=== PATIENT | male | born 1965 | race Caucasian/White ===

== ENCOUNTER → 2025-05-27 | Outpatient (CLI) | payer OTHER, SELFPAY ==
--- OUTSIDE RECORDS SUMMARY | 2025-05-27 06:47 | XMS RPT_ITS | CCD ---
Author Organization [facility] Care Team Providers Care Nurse Technician Name Role Phone PHYSICIAN, NOT RECORDED Unavailable Unavaila CLAUDE Morales Unavailable Unavailable CYNTHIA MIDDLETON Unavailable Unavailable CYNTHIA MIDDLETON Unavailable Unavailable TONEBRANDON Ace M Attending Unavailable TONE, BRANDON M Primary Care Unavailable TONE BRANDON M Admitting Unavailable Unavailable Primary Care Provider UnavailGABRIELLA Hernandez Attending Unavailable TONE, BRANDON Referring Unavailable Rosalva, Jerad Attending Unavailable Care Physician, No Primary Primary Care Unava ilable Rosalva, Jerad Referring Unavailable Rosalva, Jerad Attending Unavailable Care Physician, No Primary Primary Care Unava ilable Rosalva, Jerad Referring Unavailable Rosalva, [place] Attending Unavailable Problems Problem Classification Problem Date Documented Da te Episodic/Chronic Cardiac dysrhythmias (1 source) Unspecified atrial fibrillation; Translations: [Unspecified atrial fibrillation] Onset: 05-22-2025 Chronic Heart valve disorders (1 source) Nonrheumatic mitral (valve) insufficiency; Translations: [Nonrheumatic mitral (valve) insufficiency] Onset: 05-07-2025 Chronic Other lower respiratory disease (1 source) Dyspnea, unspecified; Translations: [Dyspnea, unspecified] Onset: 05-07-2025 Episodic Arin-; endo-; and myocarditis; cardiomyopathy (except that caused by tuberculosis or sexually transmitted disease) (8 sources) Hypertrophic cardiomyopathy; Translations: [Other hypertrophic cardiomyopathy] Onset: 10-28-2024 10-28-2024 Chronic Results Test Name Value Interpretation Reference Range Facility Cardiology Visit Reporton Cardiology Visit Report [facility] [address] [place], [place] [address] OFFICE VISIT Date of Service: 05/07/25 MR#: [id number] Acct: [id number] Name: HARRIET HERNANDEZ Rep #: [id number] : 1965 Provider: Dr. Jerad Blackwell MD Age/Sex: 59/M Location: [facility] [place] [facility] Status: Signed HPI HPI History of Present Illness Details: The patient is a 59-year-old male with a history of HCM, presenting for evaluation of dyspnea on exertion. The patient reports experiencing dyspnea on exertion over the past few years, which he attributes to a prior COVID-19 infection. He notes that the dyspnea is not constant and improves with rest. He denies any episodes of syncope. He underwent an echocardiogram last winter, which revealed a thickened heart muscle. It demonstrated an ejection fraction which was normal and an interventricular septal dimension of 1.6 cm. There was also systolic anterior motion of the mitral valve. LVOT with provocation was 188 mmHg and the maximum gradient at rest was 26 mmHg. 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 He does have a family history of hypertrophic cardiomyopathy but there is no family history of sudden cardiac . He had previously seen a rehabilitation construction specialist at [facility] and they discussed metoprolol, Camzyos, and septal myectomy. At that time he was not interested in any of that and so he presented to us for an evaluation. He has previously been taking natural supplements but he also discontinued these because he did not really trust them. 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 He denies any significant limitations in his daily activities. He has a family history of HCM, with his brother having undergone surgery at the [facility] in November. His father is , and his mother had dementia. He mentions that his daughter has a heart murmur and is otherwise healthy. His physical exam demonstrates clear lung briceno regular rate and rhythm a resting systolic heart murmur worse with Valsalva maneuver and his electrocardiogram demonstrates sinus bradycardia with a rate of 56 bpm. Moderate voltage criteria for LVH is noted. He denies any history of smoking or alcohol use. Intake Vital Signs 05/07/25 14:14 Height 5 ft 6 in Weight: 173 lb BMI 27.9 BP 130/86 H Blood Pressure Location Lt brachial Position Sitting Respiration 16 Pulse 59 L Pulse Source Monitor Intake Visit Reasons: EST CARE (SELF) Hand Ironer Required: No Accompanied by: Significant Other Is patient in pain?: No Allergies No Known Allergies Allergy (Unverified 05/07/25 14:10) Medications ???Medication ???Instructions ???Recorded ???Confirmed ???Type NK 04/17/25 04/17/25 History PFSH Medical History Dyspnea Mitral regurgitation Hypertrophic cardiomyopathy Surgical History Hx of tonsillectomy Family History Father S/P CABG x 5 Brother Hx of CABG H/O mitral valve repair Social History Smoking Status: Never smoker alcohol intake: never substance use type: does not use ROS Const Const: Positive for fatigue; Negative for weakness, daytime sleepiness or difficulty sleeping ENT ENT: Negative for dizziness or Nosebleed/epistaxis Cardio Chest Pain: No Palpitations: Yes ("very little") Edema: None Resp Respiratory: Positive for SOB with activity and SOB at rest; Negative for SOB orthopnea SOB lying down or Cough GI GI: Negative nausea, vomiting or heartburn Neuro Neuro: Negative for dizziness, lightheadedness, near syncope or weakness Endo Endo: Positive for fatigue Cardiology Exam Const Appearance: cooperative, healthy appearing, no acute distress, well developed and well groomed Nutritional Appearance: average body habitus and well nourished Orientation: alert, awake and oriented x3 Head Head: normal to inspection, normocephalic and atraumatic Ears: hearing grossly normal bilaterally and external ears normal Nose: external nose normal, nares normal, nasal mucous membranes and turbinates normal, septum normal and no nasal discharge Face and Sinus: face symmetric Mouth: oral mucosae normal, tongue normal, oropharynx normal and moist mucous membranes Teeth and gingiva: dentition normal Throat: posterior oropharynx normal, tonsils normal and uvula midline Eyes General: appearance normal, both eyes and all related structures Eyelids: eyelids normal Conjunctivae: conjunctivae normal Pupils: PERRL, normal by confrontation and accommodation normal EOM: E (more content not included)... Normal [facility] CV ECHO COMPLETE CV ECHO COMPLETE [place] [address] Patient: HARRIET HERNANDEZ Phone#: : 1965 Age: 59 Gender: M Pt. Type: Out Account: [id number] Location: Ordering: BRANDON TONE Exam Date: 09/12/20247:54 Family Phys: Charge Code: [id number] Physician: Floyd Order #: [id number] Dose#: PROCEDURE: ECHOCARDIOGRAM WITH DOPPLER AND COLOR FLOW HISTORY: Patient 59-year-old male with shortness of breath INDICATIONS: SOB COMPARISON: None. TECHNIQUE: A 2-D ultrasound, color spectral Doppler and M-mode evaluation of the heart and great vessels. PATIENT MEASUREMENTS: Height (in.): 66 BSA: 1.84 Weight (lbs.): 166 BP: 106/79 Peanut Separator: UMM M MODE 2D MEASUREMENTS AND CALCULATIONS: LVIDd: 4.25 cm LVIDs: 1.71 cm IVSd: 1.6 cm LVPWd: 1.0 cm LVOT diam: 2.0 cm FS: 59.74 % Ao Root diam: 3.13 cm LA diam: 5.2 cm LA Volume Index: 54 mL/m2 LA A4 Area: 25.42 cm2 RA A4 Area: 17 cm2 RVDd: 4.15 cm TAPSE: 27 mm DOPPLER MEASUREMENTS AND CALCULATIONS MITRAL MV E MAX paco: 0.94 m/s MV A MAX paco: 0.83 m/s MV E-A ratio: 1.13 MV V2 max: 1.13 m/s MV max P.12 mm[Hg] MV V2 mean: 0.71 m/s Continued Report - Page 2 of 3 Patient: HARRIET HERNANDEZ Phone#: : 1965 Age: 59 Gender: M Pt. Type: Out Account: [id number] Location: Ordering: BRANDON TONE Exam Date: 09/12/2024/7:54 Family Phys: Charge Code: [id number] Physician: Floyd Order #: [id number] Dose#: MV mean P.37 mm[Hg] MV V2 VTI: 37.19 cm Lat Peak E' Paco 6 cm/sec Septal Peak E' PACO 5 cm/sec E/E' lateral 17 E/E' medial 19.1 AORTIC Ao V2 max: 2.43 m/s Ao max P.62 mm[Hg] Ao V2 mean: 1.66 m/s Ao mean P.56 mm[Hg] Ao V2 VTI: 56.07 cm LV V1 Max 2.6 m/sec LV V1 Max PG 26 mm Hg LV V1 Mean PG 19 mm Hg LV V1 mean 2.12 m/sec LV V1 VTI 63 cm PULMONIC PA V2 Max 1.09 m/s PA Max PG 4.72 mm[Hg] TRICUSPID TR Max Paco 2.62 m/s TR max PG 27.56 mm[Hg] RVSP 31 mm Hg 2D/M-MODE AND COLOR FLOW LEFT VENTRICLE: There is asymmetric basal to mid septal hypertrophy seen. With IV SD measuring 1.6 cm suggestive hypertrophic cardiomyopathy.. There is systolic anterior motion of mitral valve leaflet resulting in maximum LVOT gradient of 188 mm Hg with provocation. Maximum gradient at rest is 26 mm Hg. There is grade 2 diastolic dysfunction seen. WALL MOTION: 1 - Basal anterior: Normal. 7 - Mid anterior: Normal. 13 - Apical anterior: Normal. 2 - Basal anteroseptal: Normal. 8 - Mid anteroseptal: Normal. 14 - Apical septal: Normal. 3 - Basal inferoseptal: Normal. 9 - Mid inferoseptal: Normal. 15 - Apical inferior: Normal. 4 - Basal inferior: Normal. 10-Mid inferior: Normal. 16 - Apical lateral: Normal. 5 - Basal inferolateral: Normal. 11-Mid inferolateral: Normal. 6 - Basal anterolateral: Normal. 12-Mid anterolateral: Normal. RIGHT VENTRICLE: Right ventricle is normal in size and systolic function LEFT ATRIUM: Left atrium is severely enlarged RIGHT ATRIUM: Right atrium is normal in size Continued Report - Page 3 of 3 Patient: HARRIET HERNANDEZ Phone#: : 1965 Age: 59 Gender: M Pt. Type: Out Account: [id number] Location: Ordering: [employer] Exam Date: 09/12/2024/7:54 Family Phys: Charge Code: [id number] Physician: Floyd Order #: [id number] Dose#: ATRIAL SEPTUM: There is no large interatrial shunt seen. PFO was not assessed MITRAL VALVE: Mitral valve leaflets appear mildly thickened. There is moderate to severe posteriorly directed mitral valve regurgitation. There is no stenosis AORTIC ROOT: Aortic root is normal in size. Proximal ascending aorta is dilated 3.8 cm. AORTIC ARCH: Inadequately visualized DESC THORACIC AORTA: Descending aorta is normal in size. Doppler shows normal flow IVC/SVC: IVC is normal in size with more than 50% collapse of inspiration. Estimated atrial pressure is 3 mm Hg PULMONARY VEINS: Normal pulmonic vein flow. PERICARDIUM: There is no pericardial effusion seen CONCLUSION: 1. There is asymmetric basal to mid septal hypertrophy seen with IV SD measuring 1.6 cm suggestive of hypertrophic cardiomyopathy. There is systolic anterior motion of the mitral leaflets resulting in LVOT gradient. Maximum gradient is 188 mm Hg with provocation. 2. Left atrium is severely enlarged. 3. Mitral valve leaflets appear mildly thickened. There is moderate to severe posteriorly directed mitral valve regurgitation seen. 4. Right ventricle is normal in size and systolic function 5. Estimated right ventricular systolic pressure is 31 mm Hg. 6. Proximal ascending aorta is mildly dilated 3.8 cm. Dictated by: BRENT ROJAS MD on 09/12/2024 at 11:16 Approved by: BRENT ROJAS MD on 09/12/2024 at 12:04 Normal [facility] .GFRon 12-22-2021 GFR >60 Normal [facility] ([place]) Comment on above: Result Comment: GFR Population mean for , Non- Americans Ages 20-29 = 116 mL/min/1.73 sq.m. Ages 30-39 = 107 mL/min/1.73 sq.m. Ages 40-49 = 99 mL/min/1.73 sq.m. Ages 50-59 = 93 mL/min/1.73 sq.m. Ages 60-69 = 85 mL/min/1.73 sq.m. Ages 70+ = 75 mL/min/1.73 sq.m. Chronic Kidney Disease: Less than 60 mL/min/1.73 square meters End Stage Renal Disease: Less than 15 mL/min/1.73 square meters Performed By: #### L IPID, GFR, BMP, HCV1 #### [address] [address] GFR Non- >60 Normal [facility] ([place]) Comment on above: Result Comment: GFR Population mean for , Non- Americans Ages 20-29 = 116 mL/min/1.73 sq.m. Ages 30-39 = 107 mL/min/1.73 sq.m. Ages 40-49 = 99 mL/min/1.73 sq.m. Ages 50-59 = 93 mL/min/1.73 sq.m. Ages 60-69 = 85 mL/min/1.73 sq.m. Ages 70+ = 75 mL/min/1.73 sq.m. Chronic Kidney Disease: Less than 60 mL/min/1.73 square meters End Stage Renal Disease: Less than 15 mL/min/1.73 square meters Performed By: #### L IPID, GFR, BMP, HCV1 #### [address] [address] BMPon 12-22-2021 BUN/Creatinine Ratio 22.8 ratio High 10.0-22.0 [facility] ([place]) Comment on above: Performed By: #### L IPID, GFR, BMP, HCV1 #### [address] [address] Calcium [Mass/Vol] 9.3 mg/dL Normal 8.7-10.4 [facility] ([place]) Comment on above: Performed By: #### L IPID, GFR, BMP, HCV1 #### [address] [address] Chloride [Moles/Vol] 110 mmol/L Normal 98-110 [facility] ([place] Comment on above: Performed By: #### L IPID, GFR, BMP, HCV1 #### [address] [address] CO2 [Moles/Vol] 24 mmol/L Normal 22-32 [facility] ([place] Comment on above: Performed By: #### L IPID, GFR, BMP, HCV1 #### [address] [address] Creatinine [Mass/Vol] 0.92 mg/dL Normal 0.60-1.40 [facility] ([place] Comment on above: Performed By: #### L IPID, GFR, BMP, HCV1 #### [address] [address] Electrolyte Balance 6.0 mEq/L Normal 4.0-15.0 [facility] ([place] Comment on above: Performed By: #### L IPID, GFR, BMP, HCV1 #### [address] [address] Glucose [Mass/Vol] 90 mg/dL Normal 70-110 [facility] ([place] Comment on above: Performed By: #### L IPID, GFR, BMP, HCV1 #### [place] [address] Potassium [Moles/Vol] 4.8 mmol/L Normal 3.5-5.0 [facility] ([place] Comment on above: Performed By: #### L IPID, GFR, BMP, HCV1 #### [address] [address] Sodium [Moles/Vol] 140 mmol/L Normal 136-145 [facility] ([place] Comment on above: Performed By: #### L IPID, GFR, BMP, HCV1 #### [address] [address] Urea nitrogen [Mass/Vol] 21.0 mg/dL Normal 8.0-22.0 [facility] ([place] Comment on above: Performed By: #### L IPID, GFR, BMP, HCV1 #### [address] [address] HCVon 12-22-2021 Hep C Ab Non-Reactive Normal Non-Reactive [facility] ([place] Comment on above: Performed By: #### L IPID, GFR, BMP, HCV1 #### [address] [address] Hep C Ab Int Normal [facility] ([place]) Comment on above: Result Comment: Nonr eactive: Samples with a value < 0.80 are considered nonreactive (negative) for antibodies to HCV. A negative test result does not exclude the possibility of exposure to or infection with HCV. HCV antibodies may be undetectable in some stages of the infection and in some clinical conditions. See Interp Performed By: #### L IPID, GFR, BMP, HCV1 #### [address] [address] LIPIDon 12-22-2021 Cholesterol [Mass/Vol] 218 mg/dL High 50-199 [facility] ([place] Comment on above: Result Comment: Chol esterol Reference Interval: Less than 200 Desirable 200-239 Borderline high risk 240 and above High risk Performed By: #### L IPID, GFR, BMP, HCV1 #### [address] [address] Cholesterol in HDL [Mass/Vol] 39 mg/dL Low 40-59 [facility] ([place] Comment on above: Performed By: #### L IPID, GFR, BMP, HCV1 #### [address] [address] Cholesterol in LDL [Mass/Vol] 142 mg/dL High 0-129 [facility] ([place] Comment on above: Performed By: #### L IPID, GFR, BMP, HCV1 #### [address] [address] Triglyceride [Mass/Vol] 187 mg/dL High 3-149 [facility] ([place] Comment on above: Performed By: #### L IPID, GFR, BMP, HCV1 #### [address] [address] Discharge Summaryon 08-31-19 18 Discharge Summary Normal [facility] ([place]) Depart Summaryon 08-22-2017 Depart Summary Normal [facility] [place] Inpatient Patient Summaryon 08-22-2017 Inpatient Patient Summary Normal [facility] ([place]) Orthopedic Progress Noteon 0 08-22-2017 Orthopedic Progress Note Normal [facility] ([place] Progress Noteon 08-22-2017 Progress Note Normal [facility] ([place] Orthopedic Progress Noteon 0 08-21-2017 Orthopedic Progress Note Normal [facility] ([place] Progress Noteon 08-21-2017 Progress Note Normal [facility] ([place] .Auto Diffon 08-20-2017 Basophils Auto #/vol (Bld) 0.00 10 3/mcL Normal 0.00-0.27 [facility] ([place] Comment on above: Performed By: #### C BC, ADIFF, ANEU, BMP, GFR ####[address] [address] Basophils/100 WBC Auto (Bld) 0.3 % Normal 0.0-2.5 [facility] ([place] Comment on above: Performed By: #### C BC, ADIFF, ANEU, BMP, GFR ####[address] [address] Eosinophils 0.10 10 3/mcL Normal 0.00-0.65 [facility] ([place] Comment on above: Performed By: #### C BC, ADIFF, ANEU, BMP, GFR ####[address] [address] Eosinophils/100 leukocytes 1.5 % Normal 0.0-6.0 [facility] ([place] Comment on above: Performed By: #### C BC, ADIFF, ANEU, BMP, GFR ####[address] [address] Lymphocytes 1.10 10 3/mcL Normal 0.90-4.32 [facility] ([place] Comment on above: Performed By: #### C BC, ADIFF, ANEU, BMP, GFR ####[address] [address] Lymphocytes/100 leukocytes 11.2 % Low 20.0-40.0 [facility] ([place] Comment on above: Performed By: #### C BC, ADIFF, ANEU, BMP, GFR ####[address] [address] Monocytes 0.70 10 3/mcL Normal 0.09-1.40 [facility] ([place] Comment on above: Performed By: #### C BC, ADIFF, ANEU, BMP, GFR ####[address] [address] Monocytes/100 leukocytes 7.8 % Normal 2.0-13.0 [facility] ([place] Comment on above: Performed By: #### C BC, ADIFF, ANEU, BMP, GFR ####[address] [address] Neutrophils/100 WBC Auto (Bld) 79.2 % High 50.0-75.0 [facility] ([place] Comment on above: Performed By: #### C BC, ADIFF, ANEU, BMP, GFR ####[address] [address] .GFRon 08-20-2017 eGFR (non-black) mL/min/{1.73_m2} Normal [facility] ([place]) Comment on above: Result Comment: GFR Population mean for , Non- Americans Ages 20-29 = 116 mL/min/1.73 sq.m. Ages 30-39 = 107 mL/min/1.73 sq.m. Ages 40-49 = 99 mL/min/1.73 sq.m. Ages 50-59 = 93 mL/min/1.73 sq.m. Ages 60-69 = 85 mL/min/1.73 sq.m. Ages 70+ = 75 mL/min/1.73 sq.m.Chronic Kidney Disease: Less than 60 mL/min/1.73 square metersEnd Stage Renal Disease: Less than 15 mL/min/1.73 square meters Performed By: #### C BC, ADIFF, ANEU, BMP, GFR ####[place] [address] .NEUABSon 08-20-2017 Neutrophils 7.40 10 3/mcL Normal 2.25-8.10 [facility] ([place] Comment on above: Performed By: #### C BC, ADIFF, ANEU, BMP, GFR ####[place] [address] BMPon 08-20-2017 BUN/Creatinine Ratio 19.8 ratio Normal 10.0-22.0 [facility] ([place] Comment on above: Performed By: #### C BC, ADIFF, ANEU, BMP, GFR ####[place] [address] Creatinine 0.91 mg/dL Normal 0.60-1.40 [facility] ([place] Comment on above: Performed By: #### C BC, ADIFF, ANEU, BMP, GFR ####[place] [address] Calcium 8.0 mg/dL Low 8.4-10.1 [facility] ([place] Comment on above: Performed By: #### C BC, ADIFF, ANEU, BMP, GFR ####[place] [address] Chloride 109 mmol/L Normal 98-110 [facility] ([place] Comment on above: Performed By: #### C BC, ADIFF, ANEU, BMP, GFR ####[place] [address] CO2 24 mmol/L Normal 22-32 [facility] ([place] Comment on above: Performed By: #### C BC, ADIFF, ANEU, BMP, GFR ####[place] [address] Electrolyte Balance 7.0 mEq/L Normal 4.0-15.0 [facility] ([place] Comment on above: Performed By: #### C BC, ADIFF, ANEU, BMP, GFR ####[place] [address] Glucose mass conc 108 mg/dL Normal 70-110 [facility] ([place] Comment on above: Performed By: #### C BC, ADIFF, ANEU, BMP, GFR ####[place] [address] Potassium molar conc 3.8 mmol/L Normal 3.5-5.0 [facility] ([place] Comment on above: Performed By: #### C BC, ADIFF, ANEU, BMP, GFR ####[place] [address] Sodium 140 mmol/L Normal 136-145 [facility] ([place] Comment on above: Performed By: #### C BC, ADIFF, ANEU, BMP, GFR ####[place] [address] Urea nitrogen 18.0 mg/dL Normal 8.0-22.0 [facility] ([place] Comment on above: Performed By: #### C BC, ADIFF, ANEU, BMP, GFR ####[place] [address] CBCon 08-20-2017 Erythrocyte distribution width Auto Ratio (RBC) 13.3 % Normal 11.5-15.5 [facility] ([place] Comment on above: Performed By: #### C BC, ADIFF, ANEU, BMP, GFR ####[place] [address] Erythrocytes (RBC) 4.01 10 6/mcL Low 4.50-6.00 [facility] ([place]) Comment on above: Performed By: #### C BC, ADIFF, ANEU, BMP, GFR ####[place] [address] Hematocrit (HCT) 35.2 % Low 40.0-52.0 [facility] ([place] Comment on above: Performed By: #### C BC, ADIFF, ANEU, BMP, GFR ####[place] [address] Hemoglobin mass conc (Bld) 11.7 G/dL Low 13.0-17.5 [facility] ([place] Comment on above: Performed By: #### C BC, ADIFF, ANEU, BMP, GFR ####[place] [address] MCH 29.1 pg Normal 27.0-33.0 [facility] ([place] Comment on above: Performed By: #### C BC, ADIFF, ANEU, BMP, GFR ####[place] [address] MCHC mass conc (RBC) 33.2 G/dL Normal 32.0-36.0 [facility] ([place] Comment on above: Performed By: #### C BC, ADIFF, ANEU, BMP, GFR ####[place] [address] MCV 87.7 fL Normal 81.0-100.0 [facility] ([place] Comment on above: Performed By: #### C BC, ADIFF, ANEU, BMP, GFR ####[address] [address] Platelet mean volume (PMV) 7.8 fL Normal 6.4-10.5 [facility] ([place] Comment on above: Performed By: #### C BC, ADIFF, ANEU, BMP, GFR ####[address] [address] Platelets 153 10 3/mcL Normal 150-450 [facility] ([place] Comment on above: Performed By: #### C BC, ADIFF, ANEU, BMP, GFR ####[address] [address] WBC (Leukocytes) 9.40 10 3/mcL Normal 4.50-10.80 [facility] ([place]) Comment on above: Performed By: #### C BC, ADIFF, ANEU, BMP, GFR ####[place] [address] Orthopedic Consultationon Orthopedic Consultation Normal [facility] ([place]) Surgical Progress Noteon Surgical Progress Note Normal [facility] ([place]) .Auto Diffon 08-19-2017 Basophils Auto #/vol (Bld) 0.10 10 3/mcL Normal 0.00-0.27 [facility] ([place] Comment on above: Performed By: #### C BC, ADIFF, ANEU, BMP, GFR, APTT, PRO ####[address] [address] Basophils/100 WBC Auto (Bld) 0.3 % Normal 0.0-2.5 [facility] ([place] Comment on above: Performed By: #### C BC, ADIFF, ANEU, BMP, GFR, APTT, PRO ####[address] [address] Eosinophils 0.20 10 3/mcL Normal 0.00-0.65 [facility] ([place] Comment on above: Performed By: #### C BC, ADIFF, ANEU, BMP, GFR, APTT, PRO ####[address] [address] Eosinophils/100 leukocytes 1.2 % Normal 0.0-6.0 [facility] ([place] Comment on above: Performed By: #### C BC, ADIFF, ANEU, BMP, GFR, APTT, PRO ####[address] [address] Lymphocytes 0.80 10 3/mcL Low 0.90-4.32 [facility] ([place] Comment on above: Performed By: #### C BC, ADIFF, ANEU, BMP, GFR, APTT, PRO ####[address] [address] Lymphocytes/100 leukocytes 4.5 % Low 20.0-40.0 [facility] ([place] Comment on above: Performed By: #### C BC, ADIFF, ANEU, BMP, GFR, APTT, PRO ####[address] [address] Monocytes 0.70 10 3/mcL Normal 0.09-1.40 [facility] ([place] Comment on above: Performed By: #### C BC, ADIFF, ANEU, BMP, GFR, APTT, PRO ####[address] [address] Monocytes/100 leukocytes 4.0 % Normal 2.0-13.0 [facility] ([place]) Comment on above: Performed By: #### C BC, ADIFF, ANEU, BMP, GFR, APTT, PRO ####[address] [address] Neutrophils/100 WBC Auto (Bld) 90.0 % High 50.0-75.0 [facility] ([place]) Comment on above: Performed By: #### C BC, ADIFF, ANEU, BMP, GFR, APTT, PRO ####[address] [address] .GFRon 08-19-2017 eGFR (non-black) mL/min/{1.73_m2} Normal [facility] ([place]) Comment on above: Result Comment: GFR Population mean for , Non- Americans Ages 20-29 = 116 mL/min/1.73 sq.m. Ages 30-39 = 107 mL/min/1.73 sq.m. Ages 40-49 = 99 mL/min/1.73 sq.m. Ages 50-59 = 93 mL/min/1.73 sq.m. Ages 60-69 = 85 mL/min/1.73 sq.m. Ages 70+ = 75 mL/min/1.73 sq.m.Chronic Kidney Disease: Less than 60 mL/min/1.73 square metersEnd Stage Renal Disease: Less than 15 mL/min/1.73 square meters Performed By: #### C BC, ADIFF, ANEU, BMP, GFR, APTT, PRO ####[address] [address] eGFR (non-black) mL/min/{1.73_m2} Normal [facility] ([place]) Comment on above: Result Comment: GFR Population mean for , Non- Americans Ages 20-29 = 116 mL/min/1.73 sq.m. Ages 30-39 = 107 mL/min/1.73 sq.m. Ages 40-49 = 99 mL/min/1.73 sq.m. Ages 50-59 = 93 mL/min/1.73 sq.m. Ages 60-69 = 85 mL/min/1.73 sq.m. Ages 70+ = 75 mL/min/1.73 sq.m.Chronic Kidney Disease: Less than 60 mL/min/1.73 square metersEnd Stage Renal Disease: Less than 15 mL/min/1.73 square meters Performed By: #### C BC, ADIFF, ANEU, BMP, GFR, APTT, PRO ####[place] [address] .NEUABSon 08-19-2017 Neutrophils 15.30 10 3/mcL High 2.25-8.10 [facility] ([place]) Comment on above: Performed By: #### C BC, ADIFF, ANEU, BMP, GFR, APTT, PRO ####[address] [address] APTTon 08-19-2017 aPTT None Normal [facility] ([place]) Comment on above: Performed By: #### C BC, ADIFF, ANEU, BMP, GFR, APTT, PRO ####[place] [address] aPTT 24.8 s Low 25.0-35.0 [facility] ([place]) Comment on above: Result Comment: For Heparin anticoagulation therapy, the recommendedtherapeutic range is: 54-77 seconds (APTT Correlationwith Anti-Xa therapeutic range of 0.3-0.7 units/ml).PLEASE REFERENCE THE PHARMACY PROTOCOL FOR DOSING. Performed By: #### C BC, ADIFF, ANEU, BMP, GFR, APTT, PRO ####[place] [address] BMPon 08-19-2017 BUN/Creatinine Ratio 20.2 ratio Normal 10.0-22.0 [facility] ([place]) Comment on above: Performed By: #### C BC, ADIFF, ANEU, BMP, GFR,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 Hypertrophic cardiomyopathy- Primary Other hypertrophic cardiomyopathy Other cardiomyopathy documented in this encounter [facility] Summary Purpose Family History No Family History Records FoundNo Family History Records FoundNo Family History Records FoundNo Family History Records FoundNo Family History Records Found Advance Directives No Advanced Directives Records FoundNo Advanced Directives Records FoundNo Advanced Directives Records FoundNo Advanced Directives Records FoundNo Advanced Directives Records Found Additional Source Comments (unrecognized sect ion and content) No Status Records FoundNo Status Records FoundNo Status Records FoundNo Status Records FoundNo Status Records Found INFORMATION SOURCE (unrecogn ized section and content) DATE CREATED AUTHOR 01/05/2018 [facility] ([place]) DATE CREATED AUTHOR AUTHOR'S ORGANIZ ATION 12/23/2021 [facility] DATE CREATED AUTHOR AUTHOR'S ORGANIZ ATION 09/13/2024 [facility] DATE CREATED AUTHOR AUTHOR'S ORGANIZ ATION 11/23/2024 [facility] DATE CREATED AUTHOR AUTHOR'S ORGANIZ ATION 05/24/2025 [facility] Reason for Visit (unrecogniz ed section and content) Reason Comments New Patient Specialty Diagnoses / Procedures Referred By Contact Referred To Contact Cardiovascular Medicine Diagnoses Other cardiomyopathy Brandon Mccartney MD [address] [place] [address] Phone: tel:[phone] fax:[phone] [facility] [address] [place] [address] Referral ID Status Reason Start Date Expiration Date V isits Requested Visits Authorized [id number] New Request 09/25/2024 10/20/2025 1 1 Reason Onset Date Comments Follow-up 11/20/2024 FOR RECORDS PERTAINING TO PATIENTS WHO ARE OR HAVE BEEN ENROLLED IN A CHEMICAL DEPENDENCY/SUBSTANCEABUSE PROGRAM, SOME INFORMATION MAY BE OMITTED. This clinical summary was aggregated from multiple sources. Caution should be exercised in using it in the provision of clinical care. This summary normalizes information from multiple sources, and as a consequence, information in this document may materially change the coding, format and clinical context of patient data. In addition, data may be omitted in some cases. CLINICAL DECISIONS SHOULD BE BASED ON THE PRIMARY CLINICAL RECORDS. [facility] [employer], [facility]. provides no warranty or guarantee of the accuracy or completeness of information in this document.
== END | disposition home or self-care (01) ==
PROVIDERS: Referring Provider Internal Medicine Cardiovascular Disease; Visit Provider Internal Medicine Cardiovascular Disease
DX: I48.91 Unspecified atrial fibrillation (principal)
CPT/HCPCS: 93225; 93226

== ENCOUNTER → 2025-05-29 | Outpatient (CLI) | payer SELFPAY, OTHER ==
--- NOTE | 2025-05-29 09:39 | ECHOCS_ITS ---
Reason For Study Reason For Study: Hypertrophic Cardiomyopathy Procedure This was a 2D Doppler, Color Flow transthoracic echocardiogram. Myocardial strain analysis was performed in this exam to aid in the assessment of cardiac function. Contrast injection was performed. Exam performed in department. Left Ventricle Normal LV size. Severe eccentric left ventricular hypertrophy. The left ventricular ejection fraction is 65 %. Resting LV gradient 74 mmHg. Valsalva LV gradient 128 mmHg. No regional wall motion abnormalities noted. Right Ventricle Normal RV size. Normal systolic function. Atria The left atrium is moderately enlarged. The right atrium is mildly enlarged. Mitral Valve Systolic anterior motion of the mitral valve. Mild-Moderate (1-2+) eccentric mitral valve insufficiency. Tricuspid Valve Normal tricuspid valve. Mild (1+) tricuspid valve insufficiency. Pulmonary artery systolic pressure is 24 mmHg. Aortic Valve Trisinus/trileaflet aortic valve. Pulmonic Valve Normal pulmonic valve. Normal pulmonic valve velocity. Great Vessels Normal aortic root. The pulmonary artery is normal size. Inferior vena cava collapse with respiration. Pericardium/Pleural No pericardial effusion. Medication 22 gauge I.V. with prn adaptor inserted into right arm. Diluted definity 2ml given slow IV push to enhance endocardial definition. MMode/2D Measurements & Calculations LVIDd: 4.0 cm IVSd: 1.8 cm Ao root diam: 3.8 cm LVIDs: 2.5 cm LVPWd: 1.4 cm RVDd: 4.7 cm FS: 37.8 % LAV(MOD-bp): 104.7 ml LVAd ap4: 38.5 cm2 SV(MOD-sp4): 87.4 ml LAV(MOD-bp) Indexed: 55.7 ml/m2 LVLd ap4: 8.6 cm SI(MOD-sp4): 46.5 ml/m2 LAV(MOD-sp2): 109.7 ml EDV(MOD-sp4): 137.7 ml LAV(MOD-sp4): 98.6 ml EDV(sp4-el): 145.2 ml LVAs ap4: 21.5 cm2 LVLs ap4: 7.4 cm ESV(MOD-sp4): 50.3 ml ESV(sp4-el): 52.6 ml EF(MOD-sp4): 63.4 % EF(sp4-el): 63.8 % SV(sp4-el): 92.6 ml Aortic Valve Planimetry: 2.8 cm2 LA A4 area: 27.6 cm2 LA dimension(2D): 5.5 cm RA A4 area: 22.3 cm2 TAPSE: 2.4 cm Time Measurements MV dec time: 0.24 sec Doppler Measurements & Calculations MV E max paco: 100.6 cm/sec Lat Peak E' Paco: 5.1 cm/sec Med Peak E' Paco: 6.8 cm/sec MV A max paco: 74.6 cm/sec E/E' lat: 19.7 E/E' med: 14.9 MV E/A: 1.3 MV V2 max: 134.1 cm/sec MV P1/2t max paco: 135.3 cm/sec MR max paco: 648.3 cm/sec MV max P.2 mmHg MV P1/2t: 81.3 msec MR max P.1 mmHg MV V2 mean: 50.3 cm/sec MV dec slope: 487.9 cm/sec2 MR mean paco: 464.8 cm/sec MV mean P.5 mmHg MVA(P1/2t): 2.7 cm2 MR mean P.8 mmHg MV V2 VTI: 41.4 cm MR VTI: 155.0 cm PA V2 max: 101.9 cm/sec PI end-d paco: 96.6 cm/sec TR max paco: 233.6 cm/sec TR max P.8 mmHg ECHO/Echo Complete W/ Contrast Interpretation Summary Normal LV size. Severe eccentric left ventricular hypertrophy. The left ventricular ejection fraction is 65 %. The left atrium is moderately enlarged. Systolic anterior motion of the mitral valve. Mild-Moderate (1-2+) eccentric mitral valve insufficiency. Valsalva LV gradient 128 mmHg. Ordering Physician: Jerad Blackwell Referring Physician: Jerad Blackwell Performed By: John Mclaughlin RCS
== END | disposition home or self-care (01) ==
PROVIDERS: Referring Provider Internal Medicine Cardiovascular Disease; Visit Provider Internal Medicine Cardiovascular Disease
DX: I42.2 Other hypertrophic cardiomyopathy (principal)
CPT/HCPCS: 93306; C8929